=== PATIENT | female | born 1985 | race Caucasian/White ===

== ENCOUNTER 2018-05-30 21:02 | Emergency (ER) | payer SELFPAY ==
[2018-05-30 22:16] LABS: Urine Blood NEGATIVE (NEG); Urine Glucose NEGATIVE (NEG); Urine Protein NEGATIVE (NEG); Urine Specific Gravity <1.005 (1.005-1.030)
[2018-05-30] MEDS ORDERED: NA CHLORIDE 0.9% 3,000 ML ONE (22:19)
[2018-05-30] MEDS ORDERED: HYDRALAZINE HCL 20 MG/ML VIAL ONE (22:20)
[2018-05-30 22:22] LABS: Absolute Lymphocytes (CBC) 2.3 K/uL (0.7-4.9); Absolute Monocytes 0.6 K/uL (0.1-1.3); Absolute Neutrophil 7.8 K/uL (1.8-8.0); Basophils % 0.2 % (0-1.3); Hematocrit 38.1 % (36.0-45.0); MPV 8.8 fL (7.6-11.3); Monocytes % 5.5 % (3.3-12.3); RBC Red Blood Cell Count 4.34 M/uL (3.86-4.86)
[2018-05-30 22:23] LABS: Urine Bacteria <20 /HPF (<20); Urine Culture Reflex Order NOT NEEDED; Urine RBC NONE SEEN /HPF (NONE SEEN)
[2018-05-30 22:25] LABS: Protime INR 0.91
[2018-05-30 22:35] LABS: ALT/SGPT 36 U/L (12-78); AST/SGOT 15 U/L (15-37); Albumin 3.8 g/dL (3.4-5.0); Alkaline Phosphatase 70 U/L (45-117); BUN Blood Urea Nitrogen 15 mg/dL (7-18); Bicarbonate 24 mmol/L (21-32); Bilirubin Direct < 0.1 mg/dL (0-0.2); Bilirubin Total 0.2 mg/dL (0.2-1.0); CKMB Creatine Kinase MB 2.2 ng/mL (0.3-3.6); Creatine Phosphokinase 176 U/L (26-192); Glucose Level 162 mg/dL (74-106); Lipase 110 U/L (73-393); Potassium 3.6 mmol/L (3.5-5.1); Protein, Total 7.5 g/dL (6.4-8.2); Sodium Level 140 mmol/L (136-145); Troponin (Emerg Dept Use Only) < 0.02 ng/mL (0.0-0.045)
--- NOTE | 2018-05-31 01:26 | ER ---
Nurse's Notes [facility] Name: Lin Cannon Age: 33 yrs Sex: Female : 1985 Arrival Date: 05/30/2018 Time: 21:07 Bed 23 Private MD: out of town, doctor Diagnosis: Chest pain, unspecified;Essential (primary) hypertension Presentation: 05/30 21:11 Presenting complaint: Patient states: Blood pressure has been high since Sunday, blood aj1 sugar has been in the 200's and 300's, and swelling to both legs. Patient reports chest pain that started tonight. Transition of care: patient was not received from another setting of care. Onset of symptoms was May 30, 2018. Risk Assessment: Do you want to hurt yourself or someone else? Patient reports no desire to harm self or others. Initial Sepsis Screen: Does the patient meet any 2 criteria? HR > 90 bpm. No. Patient's initial sepsis screen is negative. Does the patient have a suspected source of infection? No. Patient's initial sepsis screen is negative. Care prior to arrival: None. 21:11 Method Of Arrival: Ambulatory aj 21:11 Acuity: KIMBERLYN 3 aj1 Triage Assessment: 21:14 General: Appears in no apparent distress. uncomfortable, Behavior is calm, cooperative, aj1 appropriate for age. Pain: Complains of pain in anterior aspect of right upper chest Pain radiates to right arm Pain currently is 2 out of 10 on a pain scale. Neuro: Level of Consciousness is awake, alert, obeys commands. Cardiovascular: Reports chest pain, Patient's skin is warm and dry. Respiratory: Airway is patent Respiratory effort is even, unlabored, Respiratory pattern is regular, symmetrical. Historical: - Allergies: 21:14 No Known Allergies; aj1 - Home Meds: 21:14 Glipizide Oral [Active]; Hydroxyzine Oral [Active]; aj1 - PMHx: 21:14 Diabetes - NIDDM; aj1 - Immunization history:: Flu vaccine is not up to date. - Social history:: Smoking status: Patient uses tobacco products, denies chronic smoking, but will smoke occasionally. - Ebola Screening: : Patient denies travel to an Ebola-affected area in the 21 days before illness onset. Screenin:17 Abuse screen: Denies threats or abuse. Denies injuries from another. Nutritional rv screening: No deficits noted. Tuberculosis screening: No symptoms or risk factors identified. Fall Risk None identified. Assessment: 22:16 General: Appears in no apparent distress. comfortable, Behavior is calm, cooperative. rv Pain: Complains of pain in chest Pain began gradually. Pain: Pain radiates to right arm. Neuro: Level of Consciousness is awake. Cardiovascular: Capillary refill < 3 seconds. Respiratory: Airway is patent. GI: No signs and/or symptoms were reported involving the gastrointestinal system. : No signs and/or symptoms were reported regarding the genitourinary system. EENT: No signs and/or symptoms were reported regarding the EENT system. Derm: Skin is healthy with good turgor. 23:23 Reassessment: Patient appears in no apparent distress at this time. Patient and/or rv family updated on plan of care and expected duration. Pain level reassessed. Patient is alert, oriented x 3, equal unlabored respirations, skin warm/dry/pink. Vital Signs: 21:14 BP 158 / 119; Pulse 97; Resp 18; Temp 97.9; Pulse Ox 98% on R/A; Weight 102.06 kg (R); aj1 Height 5 ft. 6 in. (167.64 cm) (R); 22:00 BP 142 / 96 LA; Pulse 91; Resp 21 S; Pulse Ox 98% on R/A; rv 22:15 BP 123 / 88 LA; Pulse 87; Resp 22 S; Pulse Ox 98% on R/A; rv 22:30 BP 138 / 89 LA; Pulse 80; Resp 25 S; Pulse Ox 100% on R/A; rv 22:45 BP 150 / 106 LA; Pulse 86; Resp 26 S; Pulse Ox 100% on R/A; rv 23:00 BP 107 / 84 LA; Pulse 86; Resp 30 S; Pulse Ox 100% on R/A; rv 23:15 BP 136 / 94 LA; Pulse 82; Resp 23; Pulse Ox 100% on R/A; rv 0301 00:00 BP 131 / 79 LA; Pulse 89; Resp 25 S; Pulse Ox 98% on R/A; rv 00:30 BP 144 / 97 LA; Pulse 93; Resp 21 S; Pulse Ox 100% on R/A; rv 01:00 BP 136 / 90 LA; Pulse 85; Resp 18 S; Pulse Ox 98% on R/A; rv 01:15 BP 134 / 93 LA; Pulse 85; Resp 19 S; Pulse Ox 98% on R/A; rv 05/30 21:14 Body Mass Index 36.32 (102.06 kg, 167.64 cm) aj1 ED Course: 05/30 21:07 Patient arrived in ED. es 21:08 out of town, doctor is Private Physician. es 21:12 Triage completed. aj1 21:14 Arm band placed on Patient placed in an exam room. aj1 21:23 [facility]olanta Hampton FNP-C [facility]. snw 21:23 Lars Bowles MD is Attending Physician. snw 21:45 Inserted saline lock: 18 gauge in right antecubital area, using aseptic technique. rv Blood collected. Patient maintains SpO2 saturation greater than 95% on room air. 21:54 Chest Single View XRAY In Process Unspecified. EDMS 22:14 Basic Metabolic Panel Sent. rv 22:14 Troponin (emerg Dept Use Only) Sent. rv 22:14 CBC with Diff Sent. rv 22:14 CPK Sent. rv 22:14 Ckmb Sent. rv 22:14 Blood Culture Adult (2) Sent. rv 22:14 Lactate Sent. rv 22:14 LFT's Sent. rv 22:14 Lipase Sent. rv 22:14 Urine Microscopic Only Sent. rv 22:14 Ptt, Activated Sent. rv 22:14 Protime (+inr) Sent. rv 22:15 Procalcitonin Sent. rv 22:17 Patient has correct armband on for positive identification. Placed in gown. Bed in low rv position. Call light in reach. Side rails up X 1. monitor and storage bin tender on. Pulse ox on. NIBP on. 03 01:34 No provider procedures requiring assistance completed. IV discontinued, bleeding rv controlled, No redness/swelling at site. Pressure dressing applied. Administered Medications: 05/30 22:15 Drug: NS 0.9% (30 ml/kg) 30 ml/kg Route: IV; Rate: bolus; Site: right antecubital; rv 03 01:34 Follow up: IV Status: Completed infusion rv 01:34 Not Given (patient condition): hydrALAZINE 5 mg IV at calculated rate once rv Outcome: :26 Discharge ordered by . snw 01:35 Discharged to home ambulatory. rv 01:35 Condition: good 01:35 Discharge instructions given to patient, Instructed on discharge instructions, follow up and referral plans. Demonstrated understanding of instructions, follow-up care. 01:35 Patient left the ED. rv Signatures: Dispatcher [employer] Zora Smith, RN RN aj1 Jolanta Hampton, DIETITIAN ASSISTANT-C DIETITIAN ASSISTANT-Csnw Tracey Grajeda Ronaldo RN RN rv
--- NOTE | 2018-05-31 01:26 | EDPHYS ---
Physician Documentation [facility] Name: Lin Cannon Age: 33 yrs Sex: Female : 1985 Arrival Date: 05/30/2018 Time: 21:07 Bed 23 Private MD: out of town, doctor ED Physician Lars Bowles HPI: 05/30 21:35 This 33 yrs old Female presents to ER via Ambulatory with complaints of High snw Blood Pressure, High Blood Sugar, Chest Pain. 21:35 The patient has elevated blood pressure and discovered this at home. Onset: The snw symptoms/episode began/occurred and became worse. Associated signs and symptoms: Pertinent positives: chest pain. Severity of symptoms: At its worst the blood pressure was moderate, 158/119. It is unknown whether or not the patient has had similar symptoms in the past. The patient has been recently seen by a physician: with different complaint(s), recent HgbA1c 8.5 up from 6.5. Historical: - Allergies: 21:14 No Known Allergies; aj1 - Home Meds: 21:14 Glipizide Oral [Active]; Hydroxyzine Oral [Active]; aj1 - PMHx: 21:14 Diabetes - NIDDM; aj1 - Immunization history:: Flu vaccine is not up to date. - Social history:: Smoking status: Patient uses tobacco products, denies chronic smoking, but will smoke occasionally. - Ebola Screening: : Patient denies travel to an Ebola-affected area in the 21 days before illness onset. ROS: 21:33 Eyes: Negative for injury, pain, redness, and discharge, ENT: Negative for injury, snw pain, and discharge, Neck: Negative for injury, pain, and swelling, Cardiovascular: Negative for palpitations, positive for chest pain and edema, Pt states she has been in [facility] for 4 days and has been sitting in meetings all day Respiratory: Negative for shortness of breath, cough, wheezing, and pleuritic chest pain, Abdomen/GI: Negative for abdominal pain, nausea, vomiting, diarrhea, and constipation, Back: Negative for injury and pain, : Negative for injury, bleeding, discharge, and swelling, MS/Extremity: Negative for injury and deformity, lower ext edema Skin: Negative for injury, rash, and discoloration, Neuro: Negative for headache, weakness, numbness, tingling, and seizure. 21:33 Constitutional: Positive for malaise. Exam: 21:33 Head/Face: Normocephalic, atraumatic. Eyes: Pupils equal round and reactive to light, snw extra-ocular motions intact. Lids and lashes normal. Conjunctiva and sclera are non-icteric and not injected. Cornea within normal limits. Periorbital areas with no swelling, redness, or edema. ENT: Nares patent. No nasal discharge, no septal abnormalities noted. Tympanic membranes are normal and external auditory canals are clear. Oropharynx with no redness, swelling, or masses, exudates, or evidence of obstruction, uvula midline. Mucous membranes moist. Neck: Trachea midline, no thyromegaly or masses palpated, and no cervical lymphadenopathy. Supple, full range of motion without nuchal rigidity, or vertebral point tenderness. No Meningismus. Chest/axilla: Normal chest wall appearance and motion. Nontender with no deformity. No lesions are appreciated. Cardiovascular: Regular rate and rhythm with a normal S1 and S2. No gallops, murmurs, or rubs. Normal PMI, no JVD. No pulse deficits. Respiratory: Lungs have equal breath sounds bilaterally, clear to auscultation and percussion. No rales, rhonchi or wheezes noted. No increased work of breathing, no retractions or nasal flaring. Abdomen/GI: Soft, non-tender, with normal bowel sounds. No distension or tympany. No guarding or rebound. No evidence of tenderness throughout. Back: No spinal tenderness. No costovertebral tenderness. Full range of motion. Skin: Warm, dry with normal turgor. Normal color with no rashes, no lesions, and no evidence of cellulitis. MS/ Extremity: Pulses equal, no cyanosis. Neurovascular intact. Full, normal range of motion. Neuro: Awake and alert, GCS 15, oriented to person, place, time, and situation. Cranial nerves II-XII grossly intact. Motor strength 5/5 in all extremities. Sensory grossly intact. Cerebellar exam normal. Normal gait. Psych: Awake, alert, with orientation to person, place and time. Behavior, mood, and affect are within normal limits. 21:33 Constitutional: The patient appears alert, awake, anxious, obese. Vital Signs: 21:14 BP 158 / 119; Pulse 97; Resp 18; Temp 97.9; Pulse Ox 98% on R/A; Weight 102.06 kg (R); aj1 Height 5 ft. 6 in. (167.64 cm) (R); 22:00 BP 142 / 96 LA; Pulse 91; Resp 21 S; Pulse Ox 98% on R/A; rv 22:15 BP 123 / 88 LA; Pulse 87; Resp 22 S; Pulse Ox 98% on R/A; rv 22:30 BP 138 / 89 LA; Pulse 80; Resp 25 S; Pulse Ox 100% on R/A; rv 22:45 BP 150 / 106 LA; Pulse 86; Resp 26 S; Pulse Ox 100% on R/A; rv 23:00 BP 107 / 84 LA; Pulse 86; Resp 30 S; Pulse Ox 100% on R/A; rv 23:15 BP 136 / 94 LA; Pulse 82; Resp 23; Pulse Ox 100% on R/A; rv 05/31 00:00 BP 131 / 79 LA; Pulse 89; Resp 25 S; Pulse Ox 98% on R/A; rv 00:30 BP 144 / 97 LA; Pulse 93; Resp 21 S; Pulse Ox 100% on R/A; rv 01:00 BP 136 / 90 LA; Pulse 85; Resp 18 S; Pulse Ox 98% on R/A; rv 01:15 BP 134 / 93 LA; Pulse 85; Resp 19 S; Pulse Ox 98% on R/A; rv 05/30 21:14 Body Mass Index 36.32 (102.06 kg, 167.64 cm) aj1 MDM: 05/30 21:28 Patient medically screened. snw 05/31 02:36 Data reviewed: vital signs, nurses notes. Data interpreted: Pulse oximetry: on room air snw is 98 %. Interpretation: normal. Counseling: I had a detailed discussion with the patient and/or guardian regarding: the historical points, exam findings, and any diagnostic results supporting the discharge/admit diagnosis, the presence of at least one elevated blood pressure reading (>120/80) during this emergency department visit, lab results, radiology results, the need for outpatient follow up, to return to the emergency department if symptoms worsen or persist or if there are any questions or concerns that arise at home. Response to treatment: the patient is now symptom free, patient is well hydrated. Special discussion: Based on the patient's history, exam, and Dx evaluation, there is no indication for emergent intervention or inpatient Tx. It is understood by the patient/guardian that if the Sx's persist or worsen they need to return immediately for re-evaluation. I have referred the patient to see his PCP for further evaluation of high blood pressure. Based on the history and exam findings, there is no indication for further emergent testing or inpatient evaluation. I discussed with the patient/guardian the need to see the primary care provider for further evaluation of the symptoms. 05/30 21:26 Order name: Basic Metabolic Panel; Complete Time: 22:43 05/30 21:26 Order name: Blood Culture Adult (2) 05/30 21:26 Order name: CBC with Diff; Complete Time: :43 05/30 21:26 Order name: Ckmb; Complete Time: :43 05/30 21:26 Order name: CPK; Complete Time: 22:43 05/30 21:26 Order name: Lactate; Complete Time: :43 05/30 21:26 Order name: LFT's; Complete Time: :43 05/30 21:26 Order name: Lipase; Complete Time: 22:43 05/30 21:26 Order name: Procalcitonin; Complete Time: 22:58 05/30 21:26 Order name: Protime (+inr); Complete Time: 22:43 05/30 21:26 Order name: Ptt, Activated; Complete Time: 22:43 05/30 21:26 Order name: Urine Microscopic Only; Complete Time: 22:43 05/30 21:27 Order name: Troponin (emerg Dept Use Only); Complete Time: 22:43 05/30 21:52 Order name: Urine Dipstick--Ancillary (enter results); Complete Time: 22:18 2 05/30 21:26 Order name: Chest Single View XRAY 05/30 21:26 Order name: Accucheck; Complete Time: 22:15 05/30 21:26 Order name: Cardiac monitoring; Complete Time: 22:15 05/30 21:26 Order name: EKG - Nurse/Tech; Complete Time: 22:16 05/30 21:26 Order name: IV Saline Lock - Large Bore; Complete Time: 22:16 snw 05/30 21:26 Order name: Labs collected and sent; Complete Time: 22:16 snw 05/30 21:26 Order name: O2 Per Protocol; Complete Time: 22:16 snw 05/30 21:26 Order name: O2 Sat Monitoring; Complete Time: 22:16 snw 05/30 21:26 Order name: Urine Dipstick-Ancillary (obtain specimen); Complete Time: 22:16 snw 05/30 21:28 Order name: Urine Test (obtain specimen); Complete Time: 21:52 snw 05/30 22:24 Order name: Glucose, Ancillary Testing; Complete Time: 22:43 EDMS Administered Medications: 05/30 22:15 Drug: NS 0.9% (30 ml/kg) 30 ml/kg Route: IV; Rate: bolus; Site: right antecubital; rv 05/31 01:34 Follow up: IV Status: Completed infusion rv 01:34 Not Given (patient condition): hydrALAZINE 5 mg IV at calculated rate once rv Disposition: 07:48 Co-signature as Attending Physician, Lars Bowles MD I agree with the assessment and wa plan of care. Disposition: 05/31/18 01:26 Discharged to Home. Impression: Chest pain, unspecified, Essential (primary) hypertension. - Condition is Stable. - Discharge Instructions: Nonspecific Chest Pain, Hypertension, DASH Eating Plan, Rehydration, Adult. - Work release form, Medication Reconciliation Form, Thank You Letter, Antibiotic Education, Prescription Opioid Use form. - Follow up: Private Physician; When: 2 - 3 days; Reason: Recheck today's complaints, Continuance of care, Re-evaluation by your physician. Follow up: Emergency Department; When: As needed; Reason: Worsening of condition. Signatures: Dispatcher [employer] EDMS Zora Ruiz RN RN aj1 Jolanta Hampton, CUPOLA TAPPER HELPER-C CUPOLA TAPPER HELPER-Csnw Lars Bowles MD MD wa Vicente, Ronaldo, RN RN rv Corrections: (The following items were deleted from the chart) 01:26 01:26 05/31/2018 01:26 Discharged to Home. Impression: Chest pain, unspecified. snw Condition is Stable. Forms are Medication Reconciliation Form, Thank You Letter, Antibiotic Education, Prescription Opioid Use. Follow up: Private Physician; When: 2 - 3 days; Reason: Recheck today's complaints, Continuance of care, Re-evaluation by your physician. Follow up: Emergency Department; When: As needed; Reason: Worsening of condition. nena 01:35 01:26 05/31/2018 01:26 Discharged to Home. Impression: Chest pain, unspecified; rv Essential (primary) hypertension. Condition is Stable. Forms are Medication Reconciliation Form, Thank You Letter, Antibiotic Education, Prescription Opioid Use. Follow up: Private Physician; When: 2 - 3 days; Reason: Recheck today's complaints, Continuance of care, Re-evaluation by your physician. Follow up: Emergency Department; When: As needed; Reason: Worsening of condition. nena
--- NOTE | 2018-05-31 07:43 | RAD REPORT ---
EXAM DESCRIPTION: RAD - Chest Single View - 05/30/2018 9:54 pm CLINICAL HISTORY: Hypertension, hyperglycemia, bilateral leg swelling COMPARISON: None. TECHNIQUE: AP portable chest image was obtained 2145 hours . FINDINGS: Lungs are clear. Lung volumes are low. Heart and vasculature are normal. No measurable ple ural effusion and no pneumothorax. No acute bony abnormality seen. No acute aortic findings suspected . IMPRESSION: No acute cardiopulmonary process.
--- NOTE | 2018-05-31 22:30 | EKG ---
Test Date: 2018-05-30 Test Time: 21:20:52 Underground Conduit Installer: DAMARIS MEASUREMENT RESULTS: Intervals: Rate: 91 WV: 150 QRSD: 104 QT: 358 QTc: 440 [place]: P: 32 WV: 150 QRS: -14 T: 5 INTERPRETIVE STATEMENTS: Normal sinus rhythm Incomplete right bundle branch block Minimal voltage criteria for LVH, may be normal variant Borderline ECG No previous ECG available for comparison Electronically Signed On 05-31-18 22:28:15 DIRECTOR POST by Tejas Mckeon
== END 2018-05-31 01:35 | disposition home or self-care (01) ==
LOC: ER 21:02
DX: I10 Essential (primary) hypertension (principal); E11.9 Type 2 diabetes mellitus without complications; Z72.0 Tobacco use
CPT/HCPCS: 36415; 71045; 80048; 80076; 81003; 81015; 82550; 82553; 82962; 83605; 83690; 84145; 84484; 85025; 85610; 85730; 87040; 93005; 96365; 96366; 99285; J0360; J7030

== ENCOUNTER 2018-06-21 18:06 | Emergency (ER) | payer SELFPAY ==
--- OUTSIDE RECORDS SUMMARY | 2018-06-21 18:08 | XMS REPORT | Clinical Summary ---
:1985 [facility] [address] [place] [address] Care Team Providers Name Role Phone Asked, No Pcp Primary Care Provider Unavailable Allergies No Known Allergies Medications Not on file Active Problems Not on file Social History Tobacco Use Types Packs/Day Years Used Date Current Every Day Smoker Alcohol Use Drinks/Week oz/Week Comments Yes Sex Assigned at Date Recorded Not on file Job Start Date Occupation Industry Not on file Not on file Not on file Travel History Travel Start Travel End No recent travel history available. Last Filed Vital Signs Not on file Plan of Treatment Not on file Results Not on fileafter 06/20/2017 Advance Directives Patient has advance care planning documents on file. For more information, please contact:[address] [address]
--- NOTE | 2018-06-21 19:51 | RAD REPORT ---
EXAM DESCRIPTION: Vivi Single View06/21/2018 7:29 pm CLINICAL HISTORY: Chest pain COMPARISON: May 2018 FINDINGS: The lungs appear clear of acute infiltrate. The heart is normal size IMPRESSION: No acute abnormalities displayed
[2018-06-21 20:22] LABS: Protime INR 0.94
[2018-06-21 20:25] LABS: Absolute Lymphocytes (CBC) 2.2 K/uL (0.7-4.9); Absolute Monocytes 0.5 K/uL (0.1-1.3); Absolute Neutrophil 6.9 K/uL (1.8-8.0); Basophils % 0.3 % (0-1.3); Eosinophils % 1.1 % (0-4.4); Hematocrit 36.9 % (36.0-45.0); Lymphocytes % 22.3 % (15.3-44.8); MPV 8.2 fL (7.6-11.3); Monocytes % 5.3 % (3.3-12.3); RBC Red Blood Cell Count 4.21 M/uL (3.86-4.86)
[2018-06-21 20:29] LABS: Potassium 3.9 mmol/L (3.5-5.1); Sodium Level 140 mmol/L (136-145)
[2018-06-21 20:30] LABS: ALT/SGPT 22 U/L (12-78); AST/SGOT 8 U/L (15-37); Albumin 3.6 g/dL (3.4-5.0); Alkaline Phosphatase 59 U/L (45-117); BUN Blood Urea Nitrogen 14 mg/dL (7-18); Bicarbonate 26 mmol/L (21-32); Bilirubin Direct < 0.1 mg/dL (0-0.2); Bilirubin Total 0.2 mg/dL (0.2-1.0); Glucose Level 206 mg/dL (74-106); NT PRO-BNP 33 pg/mL (<125); Troponin (Emerg Dept Use Only) < 0.02 ng/mL (0.0-0.045)
--- NOTE | 2018-06-21 20:33 | ER ---
Nurse's Notes [facility] Name: Lin Cannon Age: 33 yrs Sex: Female : 1985 Arrival Date: 06/21/2018 Time: 18:06 Bed 14 Private MD: Diagnosis: Essential (primary) hypertension Presentation: 06/21 18:23 Presenting complaint: Patient states: I am at [facility]. my blood pressure has been ch high for a month, I go home next week, but the staff at [facility] said I needed to get my pressure checked. chest pains, headaches, dizzyness, sob for the past month. Transition of care: patient was not received from another setting of care. Onset of symptoms was May 2018. Risk Assessment: Do you want to hurt yourself or someone else? Patient reports no desire to harm self or others. Initial Sepsis Screen: Does the patient meet any 2 criteria? No. Patient's initial sepsis screen is negative. Does the patient have a suspected source of infection? No. Patient's initial sepsis screen is negative. Care prior to arrival: None. 18:23 Method Of Arrival: Ambulatory 18:23 Acuity: KIMBERLYN 3 ch Triage Assessment: 18:26 General: Appears in no apparent distress. comfortable, Behavior is calm, cooperative, ch appropriate for age. Pain: Complains of pain in head and chest Pain currently is 8 out of 10 on a pain scale. 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 - Social history:: Smoking status: Patient uses tobacco products, denies chronic smoking, but will smoke occasionally, Patient/guardian denies using alcohol, street drugs. - Ebola Screening: : Patient negative for fever greater than or equal to 101.5 degrees Fahrenheit, and additional compatible Ebola Virus Disease symptoms Patient denies exposure to infectious person Patient denies travel to an Ebola-affected area in the 21 days before illness onset No symptoms or risks identified at this time. Screenin:00 Abuse screen: Denies threats or abuse. Denies injuries from another. Nutritional rr5 screening: No deficits noted. Tuberculosis screening: No symptoms or risk factors identified. Fall Risk IV access (20 points). Gait- Total Jackson Fall Scale indicates No Risk (0-24 pts). Assessment: 19:00 General: Appears in no apparent distress. uncomfortable, Behavior is calm, cooperative, rr5 appropriate for age. Pain: Complains of pain in chest Pain radiates to right arm Pain currently is 8 out of 10 on a pain scale. Quality of pain is described as aching, Pain began gradually, Is intermittent. 19:00 Neuro: Level of Consciousness is awake, alert, obeys commands, Oriented to person, rr5 place, time, situation, Appropriate for age. Cardiovascular: Reports chest pain, Capillary refill < 3 seconds Patient's skin is warm and dry. Respiratory: Airway is patent Respiratory effort is even, unlabored, Respiratory pattern is regular, symmetrical. GI: Abdomen is round. : No signs and/or symptoms were reported regarding the genitourinary system. EENT: No signs and/or symptoms were reported regarding the EENT system. Derm: Skin is intact, Skin temperature is warm. Musculoskeletal: Capillary refill < 3 seconds, Range of motion: intact in all extremities. 20:00 Reassessment: Patient appears in no apparent distress at this time. Patient is alert, rr5 oriented x 3, equal unlabored respirations, skin warm/dry/pink. awaiting for review, no complaints made. 21:14 Reassessment: Patient appears in no apparent distress at this time. Patient is alert, rr5 oriented x 3, equal unlabored respirations, skin warm/dry/pink. discharge instruction given and explained without complaints made Patient states feeling better. Patient states symptoms have improved. Vital Signs: 18:26 BP 172 / 108; Pulse 96; Resp 16; Temp 98.4; Pulse Ox 99% on R/A; Weight 99.79 kg; ch Height 5 ft. 6 in. (167.64 cm); Pain 8/10; 19:00 BP 136 / 88; Pulse 90; Resp 17; Temp 98.3; Pulse Ox 98% on R/A; rr5 19:55 BP 127 / 90; Pulse 98; Resp 16; Pulse Ox 100% on R/A; mt 21:00 BP 120 / 70; Pulse 95; Resp 17; Pulse Ox 99% ; rr5 21:14 BP 133 / 83; Pulse 90; Resp 17; Pulse Ox 98% ; rr5 18:26 Body Mass Index 35.51 (99.79 kg, 167.64 cm) ED Course: 18:06 Patient arrived in ED. as 18:25 Triage completed. 18:26 Arm band placed on right wrist. Patient placed in an exam room, on a stretcher, on pulse oximetry. 18:41 Libby Malone FNP-C is PHCP. kb 18:41 Ramirez Aguila MD is Attending Physician. kb 19:00 Patient has correct armband on for positive identification. Placed in gown. Bed in low rr5 position. Call light in reach. Side rails up X2. hospital monitor on. Pulse ox on. NIBP on. 19:05 Mauro Samaniego, ALISON is Primary Nurse. rr5 19:15 Inserted saline lock: 20 gauge in right forearm, using aseptic technique. Blood rr5 collected. 19:28 XRAY Chest (1 view) In Process Unspecified. EDMS 21:15 No provider procedures requiring assistance completed. IV discontinued, intact, rr5 bleeding controlled, No redness/swelling at site. Pressure dressing applied. Administered Medications: 20:42 Drug: Hydrochlorothiazide 12.5 mg Route: PO; rr5 21:15 Follow up: Response: No adverse reaction rr5 Outcome: 20:33 Discharge ordered by . kb 21:14 Discharged to Rehab Facility rr5 21:14 Condition: stable 21:14 Discharge instructions given to patient, Instructed on discharge instructions, follow up and referral plans. medication usage, Demonstrated understanding of instructions, follow-up care, medications, Prescriptions given X 1. 21:15 Patient left the ED. rr5 Signatures: Dispatcher [employer] EDMT Libby Malone FNP-C FNP-Ckb Hammond, Christina, RN RN Madai Christianson [place] Mauro Samaniego RN RN rr5
--- NOTE | 2018-06-21 20:33 | EDPHYS ---
Physician Documentation [facility] Name: Lin Cannon Age: 33 yrs Sex: Female : 1985 Arrival Date: 06/21/2018 Time: 18:06 Bed 14 Private MD: ED Physician Ramirez Aguila HPI: 06/21 19:42 This 33 yrs old Female presents to ER via Ambulatory with complaints of High kb Blood Pressure. 19:42 The patient has elevated blood pressure and discovered this [place]. Onset: The kb symptoms/episode began/occurred 1 month(s) ago. Associated signs and symptoms: Pertinent positives: chest pain, dizziness, dyspnea, headache, Pertinent negatives: lightheadedness, nausea, visual changes, vomiting, weakness. Severity of symptoms: At its worst the blood pressure was 179 mm Hg. The patient has not experienced similar symptoms in the past. The patient has been recently seen at the [facility], a couple of weeks ago, for similar complaints labs were performed, X-rays were performed. Pt reports high blood pressure, migraines, dizziness, chest pain and shortness of breath intermittently for a month. Reports she was seen once already for same symptoms and sent back home. Has not followed up yet because she is in a rehab, but gets discharged on Sunday and will follow up then. 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 - Social history:: Smoking status: Patient uses tobacco products, denies chronic smoking, but will smoke occasionally, Patient/guardian denies using alcohol, street drugs. - Ebola Screening: : Patient negative for fever greater than or equal to 101.5 degrees Fahrenheit, and additional compatible Ebola Virus Disease symptoms Patient denies exposure to infectious person Patient denies travel to an Ebola-affected area in the 21 days before illness onset No symptoms or risks identified at this time. ROS: 19:42 Constitutional: Negative for fever, chills, and weight loss, ENT: Negative for injury, kb pain, and discharge, Neck: Negative for injury, pain, and swelling, Abdomen/GI: Negative for abdominal pain, nausea, vomiting, diarrhea, and constipation, Back: Negative for injury and pain, : Negative for injury, bleeding, discharge, and swelling, MS/Extremity: Negative for injury and deformity, Skin: Negative for injury, rash, and discoloration. 19:42 Cardiovascular: Positive for chest pain, Negative for edema, orthopnea, palpitations, paroxysmal nocturnal dyspnea. 19:42 Respiratory: Positive for shortness of breath, Negative for cough, dyspnea on exertion, hemoptysis, orthopnea, pleurisy, sputum production, wheezing. 19:42 Neuro: Positive for dizziness, headache, Negative for altered mental status, gait disturbance, hearing loss, loss of consciousness, numbness, seizure activity, speech changes, syncope, near syncope, tingling, tinnitus, tremor, visual changes, weakness. Exam: 19:44 Constitutional: This is a well developed, well nourished patient who is awake, alert, kb and in no acute distress. Head/Face: Normocephalic, atraumatic. Eyes: Pupils equal round and reactive to light, extra-ocular motions intact. Lids and lashes normal. Conjunctiva and sclera are non-icteric and not injected. Cornea within normal limits. Periorbital areas with no swelling, redness, or edema. ENT: Nares patent. No nasal discharge, no septal abnormalities noted. Tympanic membranes are normal and external auditory canals are clear. Oropharynx with no redness, swelling, or masses, exudates, or evidence of obstruction, uvula midline. Mucous membranes moist. Neck: Trachea midline, no thyromegaly or masses palpated, and no cervical lymphadenopathy. Supple, full range of motion without nuchal rigidity, or vertebral point tenderness. No Meningismus. Chest/axilla: Normal chest wall appearance and motion. Nontender with no deformity. No lesions are appreciated. Cardiovascular: Regular rate and rhythm with a normal S1 and S2. No gallops, murmurs, or rubs. Normal PMI, no JVD. No pulse deficits. Respiratory: Lungs have equal breath sounds bilaterally, clear to auscultation and percussion. No rales, rhonchi or wheezes noted. No increased work of breathing, no retractions or nasal flaring. Abdomen/GI: Soft, non-tender, with normal bowel sounds. No distension or tympany. No guarding or rebound. No evidence of tenderness throughout. Skin: Warm, dry with normal turgor. Normal color with no rashes, no lesions, and no evidence of cellulitis. MS/ Extremity: Pulses equal, no cyanosis. Neurovascular intact. Full, normal range of motion. Neuro: Awake and alert, GCS 15, oriented to person, place, time, and situation. Cranial nerves II-XII grossly intact. Motor strength 5/5 in all extremities. Sensory grossly intact. Cerebellar exam normal. Normal gait. Vital Signs: 18:26 BP 172 / 108; Pulse 96; Resp 16; Temp 98.4; Pulse Ox 99% on R/A; Weight 99.79 kg; ch Height 5 ft. 6 in. (167.64 cm); Pain 8/10; 19:00 BP 136 / 88; Pulse 90; Resp 17; Temp 98.3; Pulse Ox 98% on R/A; rr5 19:55 BP 127 / 90; Pulse 98; Resp 16; Pulse Ox 100% on R/A; mt 21:00 BP 120 / 70; Pulse 95; Resp 17; Pulse Ox 99% ; rr5 21:14 BP 133 / 83; Pulse 90; Resp 17; Pulse Ox 98% ; rr5 18:26 Body Mass Index 35.51 (99.79 kg, 167.64 cm) MDM: 18:41 Patient medically screened. kb 19:44 Data reviewed: vital signs, nurses notes. Data interpreted: Pulse oximetry: on room air kb is 99 %. Interpretation: normal. 20:32 Counseling: I had a detailed discussion with the patient and/or guardian regarding: the kb historical points, exam findings, and any diagnostic results supporting the discharge/admit diagnosis, lab results, radiology results, the need for outpatient follow up, a family practitioner, to return to the emergency department if symptoms worsen or persist or if there are any questions or concerns that arise at home. 20:33 ED course: Pt's blood pressure log reviewed. BP consistently high. Will start on HCTZ kb 12.5mg daily and pt will follow up with PCP next week after discharge from rehab.. 06/21 18:51 Order name: Basic Metabolic Panel; Complete Time: 20:31 kb 06/21 18:51 Order name: CBC with Diff; Complete Time: 20:31 kb 06/21 18:51 Order name: LFT's; Complete Time: 20:31 kb 06/21 18:51 Order name: Magnesium; Complete Time: 20:31 kb 06/21 18:51 Order name: NT PRO-BNP; Complete Time: 20:31 kb 06/21 18:51 Order name: PT-INR; Complete Time: 20:25 kb 06/21 18:51 Order name: XRAY Chest (1 view); Complete Time: 19:59 kb 06/21 18:51 Order name: Troponin (emerg Dept Use Only); Complete Time: 20:31 kb 06/21 18:51 Order name: EKG; Complete Time: 18:52 kb 06/21 18:51 Order name: Cardiac monitoring; Complete Time: 19:26 kb 06/21 18:51 Order name: EKG - Nurse/Tech; Complete Time: 19:27 kb 06/21 18:51 Order name: IV Saline Lock; Complete Time: 19:27 kb 06/21 18:51 Order name: Labs collected and sent; Complete Time: 19:27 kb 06/21 18:51 Order name: O2 Per Protocol; Complete Time: 19:27 kb 06/21 18:51 Order name: O2 Sat Monitoring; Complete Time: 19:27 kb Administered Medications: 20:42 Drug: Hydrochlorothiazide 12.5 mg Route: PO; rr5 21:15 Follow up: Response: No adverse reaction rr5 Disposition: 06/21/18 20:33 Discharged to Home. Impression: Essential (primary) hypertension. - Condition is Stable. - Discharge Instructions: Hypertension, [id number], DASH Eating Plan, Managing Your Hypertension. - Prescriptions for Hydrochlorothiazide 12.5 mg Oral Tablet - take 1 tablet by ORAL route once daily; 30 tablet. - Medication Reconciliation Form, Thank You Letter, Antibiotic Education, Prescription Opioid Use form. - Follow up: Emergency Department; When: As needed; Reason: Worsening of condition. Follow up: Private Physician; When: 2 - 3 days; Reason: Recheck today's complaints, Continuance of care, Re-evaluation by your physician. Addendum: 06/24/2018 10:13 Co-signature as Attending Physician, Ramirez Aguila MD I agree with the assessment and c bustillo plan of care. Signatures: Dispatcher [employer] Libby Ross, JOHNNY PA-Lin Bray, RN RN Ramirez Rios MD MD cha Roque, Raymond, RN RN rr5 Corrections: (The following items were deleted from the chart) 06/21 21:15 20:33 06/21/2018 20:33 Discharged to Home. Impression: Essential (primary) rr5 hypertension. Condition is Stable. Forms are Medication Reconciliation Form, Thank You Letter, Antibiotic Education, Prescription Opioid Use. Follow up: Emergency Department; When: As needed; Reason: Worsening of condition. Follow up: Private Physician; When: 2 - 3 days; Reason: Recheck today's complaints, Continuance of care, Re-evaluation by your physician. kb
[2018-06-21] MEDS ORDERED: hydroCHLOROthiazide 25 MG TAB ONE (20:50)
--- NOTE | 2018-06-22 09:42 | EKG ---
Test Date: 2018-06-21 Test Time: 18:32:32 Art Sales Consultant: VERA MEASUREMENT RESULTS: Intervals: Rate: 88 NH: 146 QRSD: 110 QT: 370 QTc: 447 [place]: P: 38 NH: 146 QRS: 15 T: 7 INTERPRETIVE STATEMENTS: Normal sinus rhythm Possible Left atrial enlargement Incomplete right bundle branch block Abnormal ECG Compared to ECG 05/30/2018 21:20:52 Left ventricular hypertrophy no longer present Electronically Signed On 06-22-18 09:41:55 CDT by Fernando Mehta
== END 2018-06-21 21:15 | disposition home or self-care (01) ==
LOC: ER 18:06
DX: I10 Essential (primary) hypertension (principal); E11.9 Type 2 diabetes mellitus without complications; F41.9 Anxiety disorder, unspecified; F32.9 Major depressive disorder, single episode, unspecified; Z72.0 Tobacco use
CPT/HCPCS: 36415; 71045; 80048; 80076; 83735; 83880; 84484; 85025; 85610; 93005; 99284